=== PATIENT | male | born 1990 | race Caucasian/White ===

== ENCOUNTER 2020-04-29 10:39 | Emergency (ER) | payer SELFPAY ==
[~2020-04-29] VITALS: Ht 193 cm; Wt 78.0 kg
[2020-04-29 10:54] VITALS: BP 100/61
--- NOTE | 2020-04-29 11:03 | NUR ---
Note fernando in EDM - 04/29/20 at 1105 by ELICEOO ED Nurse Note: Pt. aaoxe. pt. is having cough and cold s/s x 10 days with negative covid test. states no fever or n/v but does have headaches.
--- NOTE | 2020-04-29 11:04 | NUR ---
ED Nurse Note: Pt. aaox4. pt. is having cough and cold s/s x 10 days with negative covid test. states no fever or n/v but does have headaches.
[2020-04-29] MEDS ORDERED: GUAIFENESIN DM118 M1 ORAL (11:13)
[2020-04-29] MEDS ORDERED: TESSALON PERLE100 MG ORAL (11:13)
[2020-04-29 11:16] VITALS: BP 112/75
--- NOTE | 2020-04-29 11:16 | NUR ---
ER DISCHARGE NOTE: Patient is cleared to be discharged per ERMD, pt is aox4, on room air, with stable vital signs. pt was given dc and prescription instructions, pt was able to verbalize understanding, pt id band and iv site removed without complications. pt is able to ambulate with steady gait. pt took all belongings.
--- NOTE | 2020-04-29 11:17 | Emergency Room Report ---
History of Present Illness General Chief Complaint: Upper Respiratory Illness Source: Patient Present Illness HPI Disclaimer: Please note that this report is being documented using [employer] technology. This can lead to erroneous entry secondary to incorrect interpretation by the dictating instrument. HPI: 29-year-old presents for evaluation of cough. Symptoms present 10 days. He states he had a flulike illness with fevers, myalgia, fatigue, nasal congestion and a productive cough that is been improving over the past 10 days. Tested negative for COVID-19 5 days ago by PCR test. Reports most of his symptoms has resolved though nonproductive cough is lingering. He is using an [id number] allergy medication that is not improving his symptoms. States coughing is worse at night. Denies fever or chills. Denies nausea or vomiting. Denies shortness of breath, chest pain or palpitations. Denies sore throat. Mild nasal congestion persist. Intermittent headaches states are made worse by coughing fits. Reports a history of bronchitis but denies asthma. Does not use an inhaler or other medications regularly. 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 EOMI. Resp: Normal work of breathing. No wheezing. Nonproductive cough during exam. No crackles. Skin: Intact. No abrasions, laceration or rash over the exposed skin MSK: Normal tone and bulk. Moving all extremities. No obvious deformity. Neuro: Awake and alert. Mentating appropriately Medical Decision Making Diagnostic Impression: Primary Impression: Upper respiratory infection ER Course Is a 29-year-old male presenting for evaluation of persistent cough after a flulike illness 10 days ago. He tested negative for COVID-19 by PCR test 5 days ago. Arrives with stable vital signs, afebrile, no respiratory distress and physical exam is largely unremarkable. I did offer the patient an x-ray to evaluate for possible pneumonia though he declined stating he was worried about cost of this ED visit. He is asking for antitussive medication. Will start Tessalon Perles and dextromethorphan containing cough syrup to use at night. Peyton robledo a viral syndrome. Do not believe he requires emergent labs or advanced imaging at this time. Instructed to return with new or worsening symptoms. He understands and agrees with the treatment plan. Last Vital Signs Date Time Temp Pulse Resp B/P (MAP) Pulse Ox O2 Delivery O2 Flow Rate FiO2 04/29/20 10:54 70 18 Room Air 04/29/20 10:54 98.6 100/61 96 Disposition: HOME, SELF-CARE Condition: Stable Scripts Guaifenesin/Dextromethorphan* (Guaifenesin Dm Syrup*) 5 Ml Syrup 10 ML ORAL Q6H PRN for FOR COUGH, #118 ML Prov: Houston Garcia MD 04/29/20 Benzonatate* (TESSALON PERLE*) 100 Mg Capsule 100 MG ORAL THREE TIMES A DAY for 5 Days, #20 PERLE Prov: Houston Garcia MD 04/29/20 Referrals: [facility] Patient Instructions: Upper Respiratory Infection, Adult Additional Instructions: Please follow-up with your primary care doctor in the next 1 to 3 days to discuss this emergency department visit and for reevaluation. If you have any new or worsening symptoms please return to the emergency department for reevaluation. Please note that this report is being documented using [employer] technology. This can lead to erroneous entry secondary to incorrect interpretation by the dictating instrument. Houston Garcia MD Apr 29, 2020 11:17
== END 2020-04-29 11:50 | disposition home or self-care (01) ==
LOC: EMR 11:41
DX: J06.9 Acute upper respiratory infection, unspecified (principal)
CPT/HCPCS: 99281